=== PATIENT | male | born 1985 | race Caucasian/White ===

== ENCOUNTER 2018-01-17 22:34 | Emergency (ER) | payer OTHER ==
[~2018-01-17] VITALS: Ht 175.3 cm; Wt 95.2 kg
[2018-01-17 22:41] VITALS: Ht 175.3 cm; Wt 95.2 kg
[2018-01-17 23:45] LABS: BASOPHIL % 0.3 % (0-2); PLATELET COUNT 216 x10^3mcL (130-400); RED CELL DISTRIBUTION WIDTH 13.3 % (11.5-14.5)
[2018-01-17 23:57] LABS: CALCIUM 8.8 mg/dL (8.5-10.1); CARBON DIOXIDE 24.7 mmol/L (21-32); CHLORIDE SERUM 105 mmol/L (98-107); GFR1 > 60 mL/min; GLUCOSE SERUM 95 mg/dL (74-106); POTASSIUM SERUM 3.7 mmol/L (3.5-5.1); SODIUM SERUM 139 mmol/L (136-145)
[2018-01-18 00:02] LABS: ALBUMIN 3.5 g/dL (3.4-5.0); ALKALINE PHOSPHATASE 58 U/L (46-116); ALT/SGPT 36 U/L (16-63); AST/SGOT 34 U/L (15-37); FREE T4 1.28 ng/dL (0.76-1.46); TOTAL PROTEIN, SERUM 6.7 g/dL (6.4-8.2)
[2018-01-18 04:32] VITALS: BP 106/63
== END 2018-01-18 04:32 | disposition short-term general hospital (02) ==
LOC: ED 22:34
PROVIDERS: Emergency Medicine
DX: R56.9 Unspecified convulsions (principal); F20.9 Schizophrenia, unspecified
CPT/HCPCS: 36415; 84439; G0480; J2060